=== PATIENT | male | born 1960 | race Caucasian/White ===

== ENCOUNTER 2018-07-30 20:25 | Emergency (ER) | payer OTHER ==
[~2018-07-30] VITALS: Ht 172.7 cm; Wt 70.3 kg
[2018-07-30] MEDS ORDERED: SYNTHROID88 MCG PO (20:34)
[2018-07-30] MEDS ORDERED: LEXAPRO5 MG PO (20:34)
[2018-07-30] MEDS ORDERED: KEFLEX500 M1 PO (22:20)
[2018-07-30] MEDS ORDERED: ACETAMINOPHEN-1 EAC1 PO (22:20)
== END 2018-07-30 22:31 | disposition home or self-care (01) ==
LOC: ER 20:25
DX: S62.637B Displaced fracture of distal phalanx of left little finger, initial encounter for open fracture (principal); Z88.0 Allergy status to penicillin; W31.2XXA Contact with powered woodworking and forming machines, initial encounter; Y92.89 Other specified places as the place of occurrence of the external cause; Y93.89 Activity, other specified; Y99.8 Other external cause status